=== PATIENT | male | born 1985 | race Caucasian/White ===

== ENCOUNTER 2017-11-04 13:34 | Emergency (ER) | payer MEDICAID ==
[~2017-11-04] VITALS: Ht 203.2 cm; Wt 136.1 kg
[2017-11-04 14:30] VITALS: BP 145/77
[2017-11-04] MEDS ORDERED: IBUPROFEN 400 MG TAB PO ONE (15:20)
--- NOTE | 2017-11-04 15:21 | NUR ---
32m bib self with c/o 6/10 left hand index finger pain x 2 hrs [employer]. Pt sts he fell off a ladder approx 3 ft off the ground. Pt stated that he he a pipe in his hand when he fell. Pt denies any other injury. Pt denies any loc. Swelling and discoloration noted to left hand index finger. Pt is aox4. RR are even and unlabored. RR are even and unlabored. NAD. ER md casey by bedside. ALl needs met at this time. Will continue to monitor.
--- NOTE | 2017-11-04 15:51 | NUR ---
Patient discharged with v/s stable. Written and verbal after care instructions given and explained. Patient alert, oriented and verbalized understanding of instructions. Ambulatory with steady gait. All questions addressed prior to discharge. ID band removed. Patient advised to follow up with PMD. Rx of Naprosyn and [place] given. Patient educated on indication of medication including possible reaction and side effects. Opportunity to ask questions provided and answered.
[2017-11-04 15:52] VITALS: BP 138/75
== END 2017-11-04 15:51 | disposition home or self-care (01) ==
LOC: MED 13:34
DX: S62.611A Displaced fracture of proximal phalanx of left index finger, initial encounter for closed fracture (principal); W11.XXXA Fall on and from ladder, initial encounter; Y93.89 Activity, other specified; Y92.89 Other specified places as the place of occurrence of the external cause; Y99.8 Other external cause status
CPT/HCPCS: 73140; 99284